=== PATIENT | male | born 1980 | race Caucasian/White ===

== ENCOUNTER 2018-06-24 14:49 | Emergency (ER) | payer OTHER, MEDICAID, SELFPAY ==
[2018-06-24 15:23] VITALS: BP 132/89; PULSE 97; RESP 18; TEMP 36.6; O2SAT 97; BMI 25.0
--- NOTE | 2018-06-24 15:36 | HMH.EDUTC ---
[facility] – [place] Disposition Clinical Impression: Left foot pain Cellulitis Qualifiers: Site of cellulitis: extremity Site of cellulitis of extremity: lower extremity Laterality: left Qualified Code(s): L03.116 - Cellulitis of left lower limb Disposition: Home, Self-Care Condition on Discharge: Good Instructions: Cellulitis Additional Instructions: We marked the area. If the redness is spreading please return or go to the er. Start the antibiotics as prescribed. Follow up with your regular doctor if this has not completely resolved in 24 to 48 hours. GO TO THE ER FOR ANY WORSENING OR LIFE THREATENING SYMPTOMS (SUCH FEVER, CHILLS, WORSENING PAIN, ETC) Prescriptions: Doxycycline Hyclate [Doxycycline 100mg Capsule] 100 mg PO Q12 10 Days #20 cap Triamcinolone Acetonide 1 applicatio TP TIDP PRN 7 Days #15 cream..g. PRN Reason: Itching Referrals: Davion Bauman MD [Primary Care Provider] - Time of Disposition: 15:49 Medical Decision Making - Medical Records Medical records reviewed: No: I reviewed the patient's medical records. - Kirk Inquiry Pt receiving controlled substance: No Kirk was queried for this patient: No Vital Signs: 06/24/18 15:23 06/24/18 16:01 Temperature 97.9 F 97.8 F Temperature Source Oral Oral Pulse Rate 92 H Pulse Rate [Right Radial] 97 H Respiratory Rate 18 16 Blood Pressure 130/76 Blood Pressure [Right Arm] 132/89 Blood Pressure Mean [Right Arm] 103 Blood Pressure Source Automatic Cuff Blood Pressure Position Sitting 02 Sat by Pulse Oximetry 97 Oxygen Delivery Method Room Air Room Air [facility] [place] HPI - General Stated complaint: sore on left foot Time Seen by Provider: 06/24/18 15:30 Mode of Arrival: Family Vehicle Source of Information: Patient Limitations: No Limitations Description of Symptoms (Recalled from Triage Doc. by RN): PT C/O LEFT FOOT SWELLING/REDNESS AND A BLISTER LIKE BITE ARIK THAT SHOWED UP THIS MORNING. THERE ARE 3 OTHER AREAS ON HIS FOOT BUT NOT BLISTERS. HEENT Symptoms (Recalled from RN notes): No Resp Symptoms (Recalled from RN notes): No Skin Symptoms (Recalled from RN notes): Yes (BLISTER WITH REDNESS AND SWELLING ON LEFT FOOT) MS Symptoms (Recalled from RN notes): No Functional Status (Recalled from RN notes): NA - History of Present Illness Provider Complaint: He states that he got up this morning with a tender and itching area on his left foot. He denies any known injury. He denies any history of diabetes or similar issues with his skin. He states he thinks he was bit by some sort of insect or spider, but he has not saw any likely suspects. - Related Data Previous Rx's Medication Instructions Recorded Doxycycline Hyclate [Doxycycline 100 mg PO Q12 10 Days #20 cap 06/24/18 100mg Capsule] Triamcinolone Acetonide 1 applicatio TP TIDP PRN 7 Days 06/24/18 #15 cream..g. Allergies Allergy/AdvReac Type Severity Reaction Status Date / Time Penicillins [PENICILLINS] Allergy Unknown Verified 06/24/18 15:29 - Worker's Comp Is this a Worker's Comp case?: No [facility] History - Hepatitis A Screen Drug use history?: No High risk sexual behaviors?: No History of sexually transmitted infection?: No Currently employed?: No Childcare worker?: No Do you have indoor plumbing?: Yes Do you have electricity?: Yes Attestation statement:: This patient has been screened for Hepatitis A risk factors. I have reviewed the patient's past medical history: Yes Amputation: No Fractures: No - Social History Smoking Status: Current every day smoker Tobacco Type: cigarettes # Packs/Day (cigarettes): 1 Alcohol Intake: current Alcohol Intake Frequency:: a few times a month Occupational Status: employed - Psychiatric History Expresses thoughts of harming self/others: None Suicide Plan Description: No Plan ROS Obtained: Yes All systems reviewed & no additional complaints - Constitutional Constitutional: Denies body ache, Denies chills, Denies fat
--- NOTE | 2018-06-24 15:37 | PC.NURSE ---
NAIF WEINSTEIN AT BEDSIDE FOR PT EVAL
--- NOTE | 2018-06-24 15:40 | ED_ITS ---
[facility] – [place] Disposition Clinical Impression: Left foot pain Cellulitis Qualifiers: Site of cellulitis: extremity Site of cellulitis of extremity: lower extremity Laterality: left Qualified Code(s): L03.116 - Cellulitis of left lower limb Disposition: Home, Self-Care Condition on Discharge: Good Instructions: Cellulitis Additional Instructions: We marked the area. If the redness is spreading please return or go to the er. Start the antibiotics as prescribed. Follow up with your regular doctor if this has not completely resolved in 24 to 48 hours. GO TO THE ER FOR ANY WORSENING OR LIFE THREATENING SYMPTOMS (SUCH FEVER, CHILLS, WORSENING PAIN, ETC) Prescriptions: Doxycycline Hyclate [Doxycycline 100mg Capsule] 100 mg PO Q12 10 Days #20 cap Triamcinolone Acetonide 1 applicatio TP TIDP PRN 7 Days #15 cream..g. PRN Reason: Itching Referrals: Davion Bauman MD [Primary Care Provider] - Time of Disposition: 15:49 Medical Decision Making - Medical Records Medical records reviewed: No: I reviewed the patient's medical records. - Kirk Inquiry Pt receiving controlled substance: No Kirk was queried for this patient: No Vital Signs: 06/24/18 15:23 06/24/18 16:01 Temperature 97.9 F 97.8 F Temperature Source Oral Oral Pulse Rate 92 H Pulse Rate [Right Radial] 97 H Respiratory Rate 18 16 Blood Pressure 130/76 Blood Pressure [Right Arm] 132/89 Blood Pressure Mean [Right Arm] 103 Blood Pressure Source Automatic Cuff Blood Pressure Position Sitting 02 Sat by Pulse Oximetry 97 Oxygen Delivery Method Room Air Room Air [facility] [place] HPI - General Stated complaint: sore on left foot Time Seen by Provider: 06/24/18 15:30 Mode of Arrival: Family Vehicle Source of Information: Patient Limitations: No Limitations Description of Symptoms (Recalled from Triage Doc. by RN): PT C/O LEFT FOOT SWELLING/REDNESS AND A BLISTER LIKE BITE ARIK THAT SHOWED UP THIS MORNING. THERE ARE 3 OTHER AREAS ON HIS FOOT BUT NOT BLISTERS. HEENT Symptoms (Recalled from RN notes): No Resp Symptoms (Recalled from RN notes): No Skin Symptoms (Recalled from RN notes): Yes (BLISTER WITH REDNESS AND SWELLING ON LEFT FOOT) MS Symptoms (Recalled from RN notes): No Functional Status (Recalled from RN notes): NA - History of Present Illness Provider Complaint: He states that he got up this morning with a tender and itching area on his left foot. He denies any known injury. He denies any history of diabetes or similar issues with his skin. He states he thinks he was bit by some sort of insect or spider, but he has not saw any likely suspects. - Related Data Previous Rx's Medication Instructions Recorded Doxycycline Hyclate [Doxycycline 100 mg PO Q12 10 Days #20 cap 06/24/18 100mg Capsule] Triamcinolone Acetonide 1 applicatio TP TIDP PRN 7 Days 06/24/18 #15 cream..g. Allergies Allergy/AdvReac Type Severity Reaction Status Date / Time Penicillins [PENICILLINS] Allergy Unknown Verified 06/24/18 15:29 - Worker's Comp Is this a Worker's Comp case?: No [facility] History - Hepatitis A Screen Drug use history?: No High risk sexual behaviors?: No History of sexually transmitted infection?: No Currently employed?: No Childcare worker?:
[2018-06-24 16:01] VITALS: BP 130/76; PULSE 92; RESP 16; TEMP 36.6; O2SAT 99
== END 2018-06-24 16:03 | disposition home or self-care (01) ==
PROVIDERS: Emergency Provider Nurse Practitioner Family; PCP Family Medicine
DX: L03.116 Cellulitis of left lower limb (principal); F17.210 Nicotine dependence, cigarettes, uncomplicated; Z88.0 Allergy status to penicillin
CPT/HCPCS: 99201

== ENCOUNTER → 2018-11-06 15:15 | Outpatient (CLI) | payer OTHER, MEDICAID, SELFPAY ==
--- NOTE | 2018-11-06 15:20 | XR_ITS ---
XR shoulder LT min 2V HISTORY: ITS.REASON: SHOULDER PAIN ORDERING PHYSICIAN: Joanie Dyer APRN PATIENT AGE: 38 years Comparison: None FINDINGS: No fracture or dislocation. No lytic or blastic change. There is normal mineralization. The joint spaces are well-preserved. No significant degenerative/arthritic changes. No erosive changes evident. Incidental note is made of a noncalcified nodule in the left perihilar region measuring 6 mm possibly due to summation artifact from overlying vessels. Upright PA and lateral chest may confirm. IMPRESSION: 1. No acute finding. Negative left shoulder. 2. Possible left perihilar nodule
== END ==
PROVIDERS: PCP Family Medicine; Visit Provider Nurse Practitioner Family
DX: M25.512 Pain in left shoulder (principal)
CPT/HCPCS: 73030

== ENCOUNTER → 2018-12-04 13:42 | Outpatient (CLI) | payer OTHER, MEDICAID, SELFPAY ==
--- NOTE | 2018-12-04 13:47 | XR_ITS ---
XR chest 2V HISTORY: ITS.REASON: LUNG NODULE ORDERING PHYSICIAN: Joanie yDer APRN PATIENT AGE: 38 years COMPARISON: None FINDINGS: Unremarkable cardiovascular structures. No lobar consolidation or collapse. On the left shoulder exam of 11/06/2018 there was questionable left perihilar nodule. This does appear to be vessel overlap. On the lateral view there are nodular opacities in the anterior clear space and may be due to granulomas or calcified nodes of the anterior mediastinum. There is straightening of the thoracic kyphosis. IMPRESSION: No acute finding. Left perihilar nodular opacity appears to represent an overlapping vessel
== END ==
PROVIDERS: PCP Family Medicine; Visit Provider Nurse Practitioner Family
DX: R91.1 Solitary pulmonary nodule (principal)
CPT/HCPCS: 71046

== ENCOUNTER 2018-12-20 11:00 | Outpatient (RCR) | payer OTHER, MEDICAID, SELFPAY ==
--- NOTE | 2018-12-11 10:46 | HMH.OTOPEV ---
OT Inpatient Evaluation Rehab OT Outpatient Eval Start: 12/11/18 10:33 Freq: Status: Active Protocol: Document 12/11/18 10:34 RMARSHALL (Rec: 12/11/18 10:46 [id number] Electronically Signed By Usman Santiago OT 12/11/18 10:34 Outpatient Therapy Subjective History Subjective History Pt is a 38 year old male who reports to therapy for initial evaluation to left shoulder. Pt began having pain in March of 2018, but does not recall a specific injury causing the pain. Within the past month patient explains his pain has increased significantly. Pt did have an injection in the left shoulder ~2 weeks ago by ortho . He reports his pain has not improved. Pt does have slight decreased AROM and strength at left shoulder with constant pain. Pt will continue to be seen twice a week in order to address all deficits. Chief Complaint Pain,Stiff,Weakness Symptom Type Ache,Throb,Sharp,Dull,Stabbing ,Burning,Shooting Symptoms Relieved By Nothing Symptoms Aggravated By Physical Activity,Lifting Prior Functional Limitations None Current Functional Limitations Reaching,Lifting,Housework, Dressing,Sleeping,Recreation Activity Symptom Description Constant but Variable Level of pain today (0-10) 5 Pain scale - at its best (0-10) 2 Pain scale - at its worst (0-10) 8 Shoulder/Elbow Eval Shoulder Objective Measurements Shoulder ROM Left Shoulder Abduction Active Range of 145 degrees Motion (degrees) Shoulder Flexion Active Range of Motion 140 degrees (degrees) Query Text: Shoulder External Rotation Active Range 65 degrees of Motion (degrees) Shoulder Internal Rotation Active Range 65 degrees of Motion (degrees) pain with active ROM shoulder exam left standard pain with passive ROM shoulder exam left standard decreased ROM shoulder exam standard left full ROM shoulder exam standard right Shoulder MMT Shoulder Abduction Strength Grade 4 Good Shoulder Extension Strength Grade 4 Good Shoulder Flexion Strength Grade 4 Good [place]
== END 2018-12-20 11:05 | disposition home or self-care (01) ==
LOC: OT 11:00
PROVIDERS: PCP Family Medicine; Visit Provider Orthopaedic Surgery
DX: M25.512 Pain in left shoulder (principal)
CPT/HCPCS: 97014; 97110; 97166; G0283

== ENCOUNTER → 2018-12-26 14:52 | Outpatient (CLI) | payer OTHER, MEDICAID, SELFPAY ==
--- NOTE | 2018-12-26 14:53 | MR_ITS ---
PROCEDURE: MR SHOULDER LT WO CON CLINICAL INDICATION: left shoulder pain Pain, pain with movement COMPARISON: from 11/06/2018 from 12/04/2018 TECHNIQUE: Routine multiplanar multi echo sequences are performed without gadolinium enhancement. FINDINGS: There is mild thickening of the supraspinatus tendon distally with slight increase in T2 signal suggesting tendinopathy/tendinosis. The infraspinatus, subscapularis, and teres minor tendons are intact. There is no evidence of rotator cuff tear. The bicipital tendon is in place. There is fluid signal intensity deep to the anterior/superior glenoid labrum running parallel with the labrum and the glenoid consistent with a super labral recess. Labral recess also probably present inferiorly. Mild subacromial stenosis of 5 mm IMPRESSION: 1. Mild tendinopathy/tendinosis of the supraspinatus tendon with mild subacromial stenosis. 2. No evidence of tear of the rotator cuff. 3. Findings compatible with supra labral recess. This may be confirmed with MR arthrography if symptoms persist. Dictated by: Jaime Bond MD 12/27/2018 09:38 Signed by: <Electronically signed by Jaime Bond MD in [place]> 12/27/2018 09:38
== END ==
PROVIDERS: PCP Family Medicine; Visit Provider Orthopaedic Surgery
DX: M25.512 Pain in left shoulder (principal)
CPT/HCPCS: 73221

== ENCOUNTER → 2019-01-22 12:55 | Outpatient (CLI) | payer OTHER, MEDICAID, SELFPAY ==
--- NOTE | 2019-01-22 12:56 | IR_ITS ---
Exam: Left shoulder arthrogram CLINICAL INDICATION: shoulder pain Persistent left shoulder pain. Possible labral tear versus sublabral recess COMPARISON: MR SHOULDER LT WO CON from 12/26/2018 TECHNIQUE: Following obtaining informed consent under aseptic conditions and local anesthesia with 1 percent buffered lidocaine, a 22 gauge needle was inserted by the anterior superior approach into the shoulder joint capsule. Contrast was initially injected but was not felt to enter the shoulder joint capsule. The needle was then repositioned an intra-articular injection performed. Patient tolerated the procedure well without evidence of immediate complication. The patient was then taken to the MRI suite where post arthrographic images were obtained. The fluoroscopy time: 5 minutes and 13 seconds FINDINGS: Arthrographic no evidence of rotator cuff tear. There is smooth outline of the articular surfaces. No evidence of adhesive capsulitis. There was extravasation of contrast into the soft tissues in the subcoracoid region. MRI arthrogram: No evidence of rotator cuff tear. There is some mild thickening with heterogeneous signal intensity of the supraspinatus tendon consistent with tendinopathy/tendinosis. The infraspinatus, subscapularis, and teres minor tendons are intact. Contrast extends medially along the superior aspect of the glenoid labrum anteriorly. This was felt to represent a sublabral recess on the previous exam however, is somewhat more prominent than what 1 would expect for a sublabral recess and has a somewhat truncated margin. A SLAP tear is therefore considered. The gap here measures up to approximately 4 mm. Remaining labrum has an unremarkable appearance. Biceps tendon is in place. The biceps tendon however has a split like appearance in the superior aspect suggesting a split type tear. A complete tear is not felt to be present. IMPRESSION: 1. No evidence of rotator cuff tear. 2. Contrast extends between the glenoid labrum and the glenoid with a somewhat truncated margin of the superior labrum and wider space than expected for a sublabral recess. This lead 1 to believe that this is a SLAP tear of the superior glenoid labrum. 3. Longitudinal split tear of the long head of the biceps tendon superiorly Dictated by: Jaime Bond MD 01/22/2019 14:47 Electronically signed by Jaime Bond MD in [place] 01/25/2019 12:14
== END ==
PROVIDERS: PCP Family Medicine; Visit Provider Orthopaedic Surgery
DX: M25.512 Pain in left shoulder (principal)
CPT/HCPCS: 73040; 73222; Q9967

== ENCOUNTER → 2019-08-01 09:52 | Outpatient (CLI) | payer OTHER, SELFPAY ==
--- NOTE | 2019-08-01 09:56 | XR_ITS ---
PROCEDURE: XR HAND RT MIN 3V CLINICAL INDICATION: sp RT small digit pinning Follow-up pinning COMPARISON: 07/22/2019 FINDINGS: Crossing pins are present stabilizing the proximal phalanx fracture of the 5th digit with good alignment and only minimal dorsal displacement of the distal fracture fragment The joint spaces are well-preserved. No significant degenerative/arthritic changes. No erosive changes evident. Other findings:None. IMPRESSION: Good alignment status post pinning 5th proximal phalanx fracture Dictated by: Jaime Bond MD 08/01/2019 10:08 Electronically signed by Jaime Bond MD in [place] 08/01/2019 10:08
== END ==
PROVIDERS: PCP Family Medicine; Visit Provider Orthopaedic Surgery
DX: S62.616D Displaced fracture of proximal phalanx of right little finger, subsequent encounter for fracture with routine healing (principal); Z48.89 Encounter for other specified surgical aftercare
CPT/HCPCS: 73130

== ENCOUNTER → 2019-08-16 10:07 | Outpatient (CLI) | payer OTHER, SELFPAY ==
--- NOTE | 2019-08-16 10:12 | XR_ITS ---
PROCEDURE: XR HAND RT MIN 3V CLINICAL INDICATION: sp RT small digit pinning Follow-up ORIF COMPARISON: XR HAND RT MIN 3V from 07/22/2019 XR HAND RT MIN 3V from 08/01/2019 FINDINGS: Status post external fixation of the proximal phalanx fracture of the 5th digit with crossing wires in place as before stabilizing nondisplaced proximal shaft fracture of the proximal phalanx. Fracture line may be slightly less apparent. There is a posterior splint in place. IMPRESSION: Good alignment status post external fixation proximal phalanx fracture of the 5th digit Dictated by: Jaime Bond MD 08/16/2019 12:48 Electronically signed by Jaime Bond MD in [place] 08/16/2019 12:48
== END ==
PROVIDERS: PCP Family Medicine; Visit Provider Orthopaedic Surgery
DX: S62.616D Displaced fracture of proximal phalanx of right little finger, subsequent encounter for fracture with routine healing (principal)
CPT/HCPCS: 73130

== ENCOUNTER 2019-08-16 11:37 | Outpatient (RCR) | payer OTHER, SELFPAY | END 2019-08-16 12:05 | disposition home or self-care (01) | LOC: OT 11:37 | PROVIDERS: Visit Provider Orthopaedic Surgery | DX: S62.616D Displaced fracture of proximal phalanx of right little finger, subsequent encounter for fracture with routine healing (principal) | CPT/HCPCS: 97760 ==

== ENCOUNTER → 2019-08-29 10:01 | Outpatient (CLI) | payer OTHER, SELFPAY ==
--- NOTE | 2019-08-29 10:05 | XR_ITS ---
PROCEDURE: XR HAND RT MIN 3V CLINICAL INDICATION: S/P CRPP Rt small digit Follow-up fracture COMPARISON: XR HAND RT MIN 3V from 07/22/2019 XR HAND RT MIN 3V from 08/01/2019 XR HAND RT MIN 3V from 08/16/2019 FINDINGS: The pans the and splint has been removed. The comminuted fracture lines are still visible although somewhat less apparent. There is minimal dorsal displacement of the distal fracture fragment. The joint spaces are well-preserved. No significant degenerative/arthritic changes. No erosive changes evident. Other findings:None. IMPRESSION: Good alignment status post pin removal with fracture line still visible but somewhat less apparent Dictated by: Jaime Bond MD 08/29/2019 13:01 Electronically signed by Jaime Bond MD in [place] 08/29/2019 13:01
== END ==
PROVIDERS: PCP Family Medicine; Visit Provider Orthopaedic Surgery
DX: S62.616A Displaced fracture of proximal phalanx of right little finger, initial encounter for closed fracture (principal)
CPT/HCPCS: 73130

== ENCOUNTER → 2019-09-12 09:59 | Outpatient (CLI) | payer OTHER, SELFPAY ==
--- NOTE | 2019-09-12 10:07 | XR_ITS ---
PROCEDURE: XR HAND RT MIN 3V CLINICAL INDICATION: Phalanx FX Fu Follow-up fracture COMPARISON: XR HAND RT MIN 3V from 07/22/2019 XR HAND RT MIN 3V from 08/01/2019 XR HAND RT MIN 3V from 08/16/2019 XR HAND RT MIN 3V from 08/29/2019 FINDINGS: There is a cast in place. This obscures the fracture of the 5th finger proximal phalanx. There is good alignment. The joint spaces are well-preserved. No significant degenerative/arthritic changes. No erosive changes evident. Other findings:None. IMPRESSION: Overlying cast in place. Good alignment proximal phalanx fracture of the 5th digit Dictated by: Jaime Bond MD 09/12/2019 14:38 Electronically signed by Jaime Bond MD in [place] 09/12/2019 14:38
--- NOTE | 2019-09-12 10:29 | XR_ITS ---
PROCEDURE: XR HAND RT MIN 3V CLINICAL INDICATION: Rt phlanax FX Follow-up fracture COMPARISON: XR HAND RT MIN 3V from 08/01/2019 XR HAND RT MIN 3V from 08/16/2019 XR HAND RT MIN 3V from 08/29/2019 XR HAND RT MIN 3V from 09/12/2019 FINDINGS: The cast has been removed. There is good alignment of the comminuted fracture of the proximal phalanx of the 5th digit. There is some overlying callus formation. Fracture lines are however still visible.. There does appear to be an old fracture of the distal aspect of the 5th metacarpal. IMPRESSION: Healing fracture proximal phalanx 5th finger Dictated by: Jaime Bond MD 09/12/2019 11:12 Electronically signed by Jaime Bond MD in [place] 09/12/2019 11:12
== END ==
PROVIDERS: PCP Family Medicine; Visit Provider Orthopaedic Surgery
DX: S62.616D Displaced fracture of proximal phalanx of right little finger, subsequent encounter for fracture with routine healing (principal); S62.91XA Unspecified fracture of right hand, initial encounter for closed fracture
CPT/HCPCS: 73130

== ENCOUNTER → 2019-10-03 10:07 | Outpatient (CLI) | payer OTHER, SELFPAY ==
--- NOTE | 2019-10-03 10:10 | XR_ITS ---
PROCEDURE: XR HAND RT MIN 3V CLINICAL INDICATION: S/p hand FX Follow-up fracture COMPARISON: XR HAND RT MIN 3V from 08/16/2019 XR HAND RT MIN 3V from 08/29/2019 XR HAND RT MIN 3V from 09/12/2019 XR HAND RT MIN 3V from 09/12/2019 FINDINGS: Healing fractures present involving the 5th metacarpal at the proximal phalanx of the 5th finger. Fracture lines are still visible but less apparent. No significant displacement. The joint spaces are well-preserved. No significant degenerative/arthritic changes. No erosive changes evident. Other findings:None. IMPRESSION: Healing 5th metacarpal and proximal phalanx fractures Dictated by: Jaime Bond MD 10/03/2019 13:17 Electronically signed by Jaime Bond MD in [place] 10/03/2019 13:17
== END ==
PROVIDERS: PCP Family Medicine; Visit Provider Orthopaedic Surgery
DX: S62.91XA Unspecified fracture of right hand, initial encounter for closed fracture (principal)
CPT/HCPCS: 73130

== ENCOUNTER 2019-10-04 15:00 | Outpatient (RCR) | payer OTHER, SELFPAY ==
--- NOTE | 2019-09-20 14:32 | HMH.OTOPEV ---
OT Inpatient Evaluation Rehab OT Outpatient Eval Start: 09/20/19 13:50 Freq: Status: Active Protocol: Document 09/20/19 13:51 [facility] (Rec: 09/20/19 13[facility]56 [id number] Electronically Signed By Usman Santiago OT 09/20/19 13:51 Outpatient Therapy Subjective History Subjective History Pt is a 39 year old male who reports to therapy for initial evaluation to right small finger. Pt smashed his small finger in between a wall and a piece of metal resulting in a proximal phalanx fx. Pt is currently s/p CRPP R small finger; July 22, 2019. 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 Pt is right hand dominant. Pt will continue to be seen in order to address all deficits. 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 Source Operator Strength Symptom Type Ache,Throb,Sharp Symptoms Relieved By Rest/Positioning Symptoms Aggravated By Physical Activity,Lifting Prior Functional Limitations None Current Functional Limitations Reaching,Lifting,Housework, Driving,Recreation Activity Symptom Description Activity Dependent Level of pain today (0-10) 0 Pain scale - at its best (0-10) 0 Pain scale - at its worst (0-10) 3 Wrist/Hand Eval Finger Range of Motion Right Little Finger Finger Metacarpophalangeal Flexion 60 degrees Active Range of Motion (degrees) Finger Metacarpophalangeal Extension 0 degrees Active Range of Motion (degrees) Finger Proximal Interphalangeal Flexion 60 degrees Active Range (degrees) Finger Proximal Interphalangeal 0-40 degrees Extension Active Range (degrees) Finger Distal Interphala
== END 2019-10-04 15:05 | disposition home or self-care (01) ==
LOC: OT 15:00
PROVIDERS: PCP Family Medicine; Visit Provider Orthopaedic Surgery
DX: S62.91XA Unspecified fracture of right hand, initial encounter for closed fracture (principal)
CPT/HCPCS: 97110; 97140; 97166

== ENCOUNTER → 2021-06-29 15:10 | Outpatient (POV) | payer OTHER, SELFPAY | PROVIDERS: Visit Provider Dermatology | DX: Z00.00 Encounter for general adult medical examination without abnormal findings (principal) ==

== ENCOUNTER 2023-09-30 16:19 | Emergency (ER) | payer OTHER, SELFPAY ==
[2023-09-30 17:05] VITALS: BP 121/82; PULSE 76; RESP 16; TEMP 36.5; O2SAT 96; BMI 24.4
--- NOTE | 2023-09-30 18:21 | EXP.UTC ---
Discharge Plan Disposition Patient Disposition: Home, Self-Care Condition: Good Prescriptions Prescriptions: New methylprednisolone [Medrol ([place])] 4 mg tablets,dose pack See Rx Instructions .ROUTE .COMPLEX 6 Days Qty: 21 0RF Rx Instructions: 4 mg orally ;Medrol dose taper remington [id number] [Bromfed DM] 2-30-10 mg/5 mL syrup 10 ml PO Q4-6H PRN (Reason: cold symptoms) Qty: 200 0RF No Action albuterol sulfate 90 mcg/actuation HFA aerosol inhaler See Rx Instructions .ROUTE .COMPLEX Patient Comments: INHALE 2 PUFFS BY MOUTH 4 TIMES DAILY SCHEDULED THEN EVERY 2 HOURS NEEDED Rx Instructions: INHALE 2 PUFFS BY MOUTH 4 TIMES DAILY SCHEDULED THEN EVERY 2 HOURS NEEDED Referrals Follow up/Referrals: Davion Bauman MD [Primary Care Provider] - See instructions Clinical Impressions Clinical Impression: Acute upper respiratory infection Instructions Patient Instructions: DI for Viral Upper Respiratory Infection -- Adult Discharge ED Provider: Eli Mcpherson [facility] General Stated complaint: KAYE,congestion Mode of Arrival: Ambulatory Source of Information: Patient Limitations: No Limitations Time Seen by Provider: 09/30/23 18:03 Description of Symptoms (Recalled from Triage Doc. by RN): Pt's symptoms are KAYE, congestion, fatigue, and swollen eyes. Was seen by PCP on 09/25/2023. HEENT Symptoms (Recalled from RN notes): Yes Resp Symptoms (Recalled from RN notes): No Skin Symptoms (Recalled from RN notes): No MS Symptoms (Recalled from RN notes): No Functional Status (Recalled from RN notes): n/a History of Present Illness Provider Complaint: Pt reports that he finished his antibiotics last night and continues to have strong cough, nasal congestion, clear runny nose, facial swelling and pressure, red eyes, and fatigue. Related Data Home Medications Medication Instructions Recorded Confirmed albuterol sulfate 90 mcg/actuation See Rx Instructions .Route .COMPLEX 09/30/23 09/30/23 aerosol inhaler Previous Rx's Medication Instructions Recorded [id number]-MI 10 ml PO Q4-6H PRN cold symptoms 09/30/23 2 mg-30 mg-10 mg/5 mL oral syrup #200 mL (Bromfed DM) methylprednisolone 4 mg tablets in See Rx Instructions .Route 09/30/23 a dose pack (Medrol ([place])) .COMPLEX 6 days #21 tabs Allergies Allergy/AdvReac Type Severity Reaction Status Date / Time Penicillins [PENICILLINS] Allergy Unknown Verified 09/30/23 17:38 Worker's Comp Is this a Worker's Comp case?: No [facility] Disclaimer: The information contained in this section may have been updated after the patient was seen, as this information can be updated by other users. Social History Smoking Status: Current every day smoker tobacco type: cigarettes packs per day: 1 alcohol intake: current alcohol intake frequency: holidays/special occasions only substance use type: other current occupational status: employed Travel in the last 8 weeks: None number of children: 2 caffeine: Yes ROS Obtained: Yes All systems reviewed & no additional complaints except as documented Constitutional Constitutional: Reports system reviewed and no additional complaints, except as documented, Reports fatigue, Reports fever(s) and Reports malaise Eyes Eyes: Reports system reviewed and no additional complaints, except as documented and Reports eye discharge ENT Ears, Nose, Mouth, and Throat: Reports system reviewed and no additional complaints, except as documented, Reports nasal congestion, Reports nasal discharge, Reports post nasal drip and Reports sinus pressure Cardiovascular Cardiovascular: Reports system reviewed and no additional complaints, except as documented Respiratory Respiratory: Reports system reviewed and no additional complaints, except as documented and Reports non-productive cough Gastrointestinal Gastrointestingal: Reports system reviewed and no additional complaints, except as documented Genitourinary Male Genitourinary: Reports system reviewed and no additional complaints, except as documented Musculoskeletal Musculoskeletal: Reports system reviewed and no additional complaints, except as documented Integumentary/Breasts Skin/Breast: Reports system reviewed and no additional complaints, except as documented Neurologic Neurologic: Reports system reviewed and no additional complaints, except as documented Endocrine Endocrine: Reports system reviewed and no additional complaints, except as documented and Reports fatigue Hematologic/Lymphatic Henatologic/Lymphatic: Reports system reviewed and no additional complaints, except as documented Allergic/Immunologic Allergic/Immunologic: Reports system reviewed and no additional complaints, except as documented Physical Exam General General appearance: alert Comment: ill appearing Head Head exam: atraumatic and normocephalic Eye Eye exam: Present normal appearance Expanded ENT Exam External ear exam: Present normal external inspection Nose exam: Present sinus tenderness Nasal speculum exam: Bilateral: other (clear drainage edematous mucosa) Mouth exam: Present normal external inspection Teeth exam: Present normal inspection Throat exam: Present normal inspection Neck Neck exam: Present normal inspection Chest Chest inspection: Present normal inspection and symmetric chest wall rise Respiratory Respiratory exam: Present other (course sounds throughout) Cardiovascular Cardiovascular exam: Present regular rate and normal rhythm Abdominal Exam Abdominal exam: Present soft Extremities Exam Extremities exam: Present normal inspection Back Exam Back exam: Present normal inspection Neurological Exam Neurological exam: Present alert and oriented X3 Psychiatric Psychiatric exam: Present normal affect and normal mood Skin Skin exam: Present warm and dry Lymphatic Lymphatic Findings: no adenopathy Medical Decision Making Kirk Inquiry Pt receiving controlled substance: No Kirk was queried for this patient: No Vital Signs: 09/30/23 17:05 Temperature 97.7 F Temperature Source Oral Pulse Rate [Right Radial] 76 Respiratory Rate 16 Blood Pressure [Right Arm] 121/82 Blood Pressure Mean [Right Arm] 95 Blood Pressure Source [Right Arm] Automatic Cuff Blood Pressure Position [Right Arm] Sitting 02 Sat by Pulse Oximetry 96 Oxygen Delivery Method Room Air
[2023-09-30 18:35] VITALS: BP 121/82; PULSE 76; RESP 20; TEMP 36.5; O2SAT 96
--- NOTE | 2023-09-30 18:35 | PC.NURSE ---
Sent full panel to lab via tube system
[2023-09-30 18:57] LABS: Adenovirus,PCR Not Detected (NotDetected); Bordetella Pertussis Not Detected (NotDetected); Chlamydophila Pneumoniae, PCR Not Detected (NotDetected); Coronavirus 19, PCR Not Detected (NotDetected); Coronavirus 229E Not Detected (NotDetected); Coronavirus NL63 Not Detected (NotDetected); Coronavirus OC43 Not Detected (NotDetected); Coronovirus HKU1,PCR Not Detected (NotDetected); Human Metapneumovirus Not Detected (NotDetected); Influenza A, PCR Not Detected (NotDetected); Influenza AH1, 2009 Not Detected (NotDetected); Influenza AH1, PCR Not Detected (NotDetected); Influenza AH3,PCR Not Detected (NotDetected); Influenza B, PCR Not Detected (NotDetected); Mycoplasma Pneumoniae, PCR Not Detected (NotDetected); Parainfluenza 1, PCR Not Detected (NotDetected); Parainfluenza 2, PCR Not Detected (NotDetected); Parainfluenza 4, PCR Not Detected (NotDetected); Respiratory Syncytial Virus Not Detected (NotDetected); Rhinovirus/Enterovirus Not Detected (NotDetected)
[2023-10-01 02:15] LABS: Parainfluenza 3, PCR Detected (NotDetected)
== END 2023-09-30 18:35 | disposition home or self-care (01) ==
PROVIDERS: Emergency Provider Nurse Practitioner Family; PCP Family Medicine
DX: R05.9 Cough, unspecified (principal); B34.8 Other viral infections of unspecified site; R09.81 Nasal congestion; R53.83 Other fatigue
CPT/HCPCS: 87581; 87632; 87635; 87798; 99204; 99212; G0463

== ENCOUNTER 2023-10-03 21:51 | Emergency (ER) | payer OTHER, SELFPAY ==
[2023-10-03 22:04] VITALS: BP 141/94; PULSE 87; RESP 18; TEMP 37; O2SAT 98; BMI 24.6
--- NOTE | 2023-10-03 22:32 | PC.NURSE ---
rounded on pt at this time. no needs voiced
[2023-10-03 22:33] LABS: Basophils # 0.2 K/mm3 (0-0.2); Eosinophils # 0.3 K/mm3 (0.0-0.4); Eosinophils % 1.6 % (0.1-12.0); Hematocrit 52.8 % (42.0-52.0); Hemoglobin 17.4 g/dL (14.1-18.0); Lymphocytes # 2.6 K/mm3 (0.7-4.5); Lymphocytes % 15.2 % (10-50); Mean Corpuscular Volume 96.8 fl (80-94); Mean Platelet Volume 7.3 fl (7.4-10.4); Monocytes # 0.9 K/mm3 (0.1-1.0); Monocytes % 5.2 % (1.7-9.3); Neutrophils # 13.2 K/mm3 (1.8-7.8); Neutrophils % 76.9 % (37.0-80.0); Platelet Count 619 K/mm3 (142-424); Red Blood Count 5.46 M/mm3 (4.60-6.20); Red Cell Distribution Width 14.1 % (11.5-17.5); White Blood Count 17.1 K/mm3 (4.8-10.8)
[2023-10-03 22:37] LABS: MANUAL DIFFERENTIAL MANUAL DIFFERENTIAL (MANUAL DIFF)
[2023-10-03 23:05] LABS: Alanine Aminotransferase 62 U/L (12-78); Albumin Level 4.4 g/dl (3.5-5.0); Albumin/Globulin Ratio 1.2 (1.1-1.8); Alkaline Phosphatase 95 U/L (38-126); Aspartate Amino Transferase 45 U/L (17-59); Bilirubin,Total 0.5 mg/dl (0.2-1.3); Blood Urea Nitrogen 8 mg/dl (9-20); Calcium 9.8 mg/dl (8.4-10.2); Carbon Dioxide 33 mmol/L (22.0-30.0); Chloride 97 mmol/L (98-107); Creatinine Clearance Estimated 141 mL/min (50-200); Erythrocyte Sedimentation Rate 1 mm/hr (0-15); Estimated Glomerular Filt Rate 105 ml/min (>60); GFR (African American) 127 ML/MIN (>60); Globulin 3.6 g/dL (1.3-3.2); Glucose 104 mg/dl (74-100); Sodium 140 mmol/L (136-145)
--- NOTE | 2023-10-03 23:05 | XR_ITS ---
PROCEDURE INFORMATION: Exam: XR Chest Exam date and time: 10/03/2023 11:02 PM Age: 43 years old Clinical indication: Wheezing; Additional info: Rll wheezes TECHNIQUE: Imaging protocol: Radiologic exam of the chest. Views: 2 views. COMPARISON: DX (CHEST PA, CHEST, CHEST PA) 12/04/2018 2:01 PM FINDINGS: Lungs: Unremarkable. No consolidation. Pleural spaces: Unremarkable. No pleural effusion. No pneumothorax. Heart/Mediastinum: Unremarkable. No cardiomegaly. Bones/joints: Unremarkable. IMPRESSION: No acute findings.
[2023-10-03 23:06] LABS: Lactic Acid 1.3 mmol/L (0.7-2.1)
--- NOTE | 2023-10-03 23:10 | ED_ITS ---
Discharge Plan Disposition Patient Disposition: Home, Self-Care Prescriptions Prescriptions: No Action albuterol sulfate 90 mcg/actuation HFA aerosol inhaler See Rx Instructions .ROUTE .COMPLEX Patient Comments: INHALE 2 PUFFS BY MOUTH 4 TIMES DAILY SCHEDULED THEN EVERY 2 HOURS NEEDED Rx Instructions: INHALE 2 PUFFS BY MOUTH 4 TIMES DAILY SCHEDULED THEN EVERY 2 HOURS NEEDED methylprednisolone [Medrol (Remington)] 4 mg tablets,dose pack See Rx Instructions .ROUTE .COMPLEX 6 Days Qty: 21 0RF Rx Instructions: 4 mg orally ;Medrol dose taper remington znifbfzrilezupg-obqoshmij-RM [Bromfed DM] 2-30-10 mg/5 mL syrup 10 ml PO Q4-6H PRN (Reason: cold symptoms) Qty: 200 0RF Referrals Follow up/Referrals: Davion Bauman MD [Primary Care Provider] - See instructions Activity Restrictions/Add. Instructions Additional Instructions/Restrictions: Please use eyedrops in both eyes, 1 drop every 6 hours for 7-10 days. Please follow-up with your primary care provider. Please return to the emergency department if you develop any new or worsening symptoms. Clinical Impressions Clinical Impression: Parainfluenza virus infection, Other stomatitis and mucositis (ulcerative), Conjunctivitis, Rash and nonspecific skin eruption Instructions Patient Instructions: DI for Skin Abscess Discharge ED Provider: Nelson Ahn General Adult HPI <Luke Rivera MD - Last Filed: 10/03/23 23:15> General Chief complaint: Skin/Abscess/Foreign Body Stated complaint: sore throat, blisters, rash on torso Time Seen by Provider: 10/03/23 22:04 Mode of Arrival: Ambulatory Source of Information: Patient and Spouse Limitations: No Limitations Description of Symptoms (Recalled from ER Triage Doc. by RN): pt to ed and states he was treated by pcp last monday for bronchitis with azithromycin and albuterol inhaler. Pt had worsening sx and was seen in [facility] monday and was given bromfed and solu-medrol. pt reports worsening sx with eyes and lips swelling, blisters in mouth and spotted rash on torso History of Present Illness HPI narrative: Please note that above description of symptoms, in this electronic medical record under categorization of recalled from ER triage doctor by RN are reflective of an initial nursing assessment, however, is not reflective of my full history and physical exam that was personally taken and clarified. Consequentially, this preceding description of symptoms, which may include the patient's categorized chief complaint in the EMR, do not reflect my personal clinical impression, and the ultimate description of history of present illness and patient stated complaints should be deferred to this section of the note. Unless stated otherwise or congruent with this section of the note, additional signs, symptoms, or incongruence should be interpreted as inaccurate with my clinical impression. Related Data Home Medications Medication Instructions Recorded Confirmed albuterol sulfate 90 mcg/actuation See Rx Instructions .Route .COMPLEX 09/30/23 09/30/23 aerosol inhaler Previous Rx's Medication Instructions Recorded zkujajmohfyphhy-ijyjtgifypceuvk-JY 10 ml PO Q4-6H PRN cold symptoms 09/30/23 2 mg-30 mg-10 mg/5 mL oral syrup #200 mL (Bromfed DM) methylprednisolone 4 mg tablets in See Rx Instructions .Route 09/30/23 a dose pack (Medrol (Remington)) .COMPLEX 6 days #21 tabs Allergies Allergy/AdvReac Type Severity Reaction Status Date / Time Penicillins [PENICILLINS] Allergy Unknown Verified 09/30/23 17:38 PFS <Luke Rivera MD - Last Filed: 10/03/23 23:15> [facility] Disclaimer: The information contained in this section may have been updated after the patient was seen, as this information can be updated by other users. Social History Smoking Status: Current every day smoker tobacco type: cigarettes packs per day: 1 alcohol intake: current alcohol intake frequency: holidays/special occasions only substance use type: other current occupational status: employed Travel in the last 8 weeks: None number of children: 2 caffeine: Yes <Luke Rivera MD - Last Filed: 10/03/23 23:15> ROS Obtained: Yes All systems reviewed & no additional complaints except as documented Physical Exam <Luke Rivera MD - Last Filed: 10/03/23 23:15> General General appearance: alert and in no apparent distress Head Head exam: atraumatic and normocephalic Eye Eye exam: Present normal appearance, PERRL and EOMI ENT ENT exam: Present mucous membranes moist and other (Numerous central oral blisters and lesions on bilateral buccal mucosa as well as lips, tongue down into throat.) Neck Neck exam: Present normal inspection, full ROM and trachea midline; Absent tenderness or lymphadenopathy Respiratory Respiratory exam: Present wheezes (Isolated to right lower lung mock anteriorly); Absent respiratory distress, stridor, accessory muscle use or prolonged expiratory phase Cardiovascular Cardiovascular exam: Present regular rate and normal rhythm Abdominal Exam Abdominal exam: Present soft; Absent distention, tenderness, guarding, rebound or rigidity Extremities Exam Extremities exam: Absent edema Neurological Exam Neurological exam: Present alert, oriented X3, CN II-XII intact and normal gait; Absent motor sensory deficit Skin Skin exam: Present warm and dry; Absent diaphoresis or erythema Medical Decision Making <Luke Rivera MD - Last Filed: 10/03/23 23:15> Medical Records Medical records reviewed: Yes I reviewed the patient's medical records. Kirk Inquiry Pt receiving controlled substance: No Kirk was queried for this patient: No Vital Signs: 10/03/23 22:04 10/04/23 00:43 Temperature 98.6 F 98.2 F Temperature Source Oral Oral Pulse Rate 71 Pulse Rate [Left Radial] 87 Respiratory Rate 18 16 Blood Pressure 149/97 H Blood Pressure [Right Arm] 141/94 H Blood Pressure Mean [Right Arm] 109 Blood Pressure Source Automatic Cuff Blood Pressure Source [Right Arm] Automatic Cuff Blood Pressure Position Sitting Blood Pressure Position [Right Arm] Sitting 02 Sat by Pulse Oximetry 98 Oxygen Delivery Method Room Air Room Air Lab Data Lab Results 10/03/23 22:25: WBC 17.1 H, RBC 5.46, Hgb 17.4, Hct 52.8 H, MCV 96.8 H, MCH 32.0 H, MCHC 33.0, RDW 14.1, Plt Count 619 H, MPV 7.3 L, Neut % (Auto) 76.9, Lymph % (Auto) 15.2, Lipscomb % (Auto) 5.2, Eos % (Auto) 1.6, Baso % (Auto) 1.0, Neut # (Auto) 13.2 H, Lymph # (Auto) 2.6, Lipscomb # (Auto) 0.9, Eos # (Auto) 0.3, Baso # (Auto) 0.2, Total Counted 100, Neutrophils % (Manual) 73, Lymphocytes % (Manual) 26, Monocytes % (Manual) 1 L, Platelet Estimate Normal, RBC Morphology Normal, ESR 1, Sodium 140, Potassium 3.5, Chloride 97 L, Carbon Dioxide 33 H, Anion Gap 13.5, BUN 8 L, Creatinine 0.80, Estimated Creat Clear 141, Estimated GFR 105, Est GFR ( Amer) 127, Glucose 104 H, Lactate 1.3, Calcium 9.8, Total Bilirubin 0.5, AST 45, ALT 62, Alkaline Phosphatase 95, C-Reactive Protein 7.0 H , Total Protein 8.0, Albumin 4.4, Globulin 3.6 H, Albumin/Globulin Ratio 1.2 10/03/23 22:25 10/03/23 22:25 Orders (Tests/Meds): ED MEDICATIONS Discontinued Medications Generic Name Dose Route Start Last Admin Trade Name Freq PRN Reason Stop Dose Admin Ofloxacin 0 ml 10/04/23 01:00 10/04/23 01:00 Ofloxacin 0.3% Ophth Drops 5ml OP 11/03/23 00:59 5 ml Q2H SEYMOUR Administration Polymyxin/Trimethoprim Sulfate 0 ml 10/04/23 06:00 Trimethoprim-Polymyxin B Ophth Soln 10ml OP 11/03/23 05:59 [id number] SEYMOUR ORDERS Category Date Time Status CXR 2 view (NOT portable) [XR chest 2V] Stat Exams 10/03/23 23:05 Completed CBC w/Auto Diff [Complete Blood Count Auto Diff] Stat Lab 10/03/23 22:25 Completed CMP [Comprehensive Metabolic Panel] Stat Lab 10/03/23 22:25 Completed CRP [C-Reactive Protein] Stat Lab 10/03/23 22:25 Completed ESR [Erythrocyte Sedimentation Rate] Stat Lab 10/03/23 22:25 Completed Lactic Acid Stat Lab 10/03/23 22:25 Completed Blood Culture Stat Micro 10/03/23 22:30 Received Medical Decision Narrative: 43-year-old male no relevant medical history presenting with blisters in his mouth, throat. Patient was diagnosed with bronchitis about 8 days prior to this visit, started on azithromycin and albuterol. Patient did not use albuterol, used azithromycin until done. 5 days prior to this visit, started developing sores in his mouth. Also developed bilateral eye pain and itching/swelling. States that this continued to get worse. Went to urgent care on Monday, diagnosed with parainfluenza 3. Patient was given Bromfed and Medrol Dosepak for cough. Has been taking Medrol Dosepak, not Bromfed. Coming in for further evaluation of oral blisters and what now appear to be blisters in his throat. Denies shortness of breath, voice changes, difficulty or pain with range of motion of neck, trismus, chest pain, or any other concerns. To be noted the patient has numerous medication changes recently was complicates care. history was obtained via conversation with patient. On arrival, patient hemodynamically stable, alert, [oriented x4, ][appropriate, ]GCS [15], moving all extremities spontaneously, pupils equal and reactive to light. Full physical exam performed and significant for numerous intraoral lesions. He also has bilateral conjunctivitis. No lymphadenopathy. He does have erythematous rash on face, trunk that spares his palms and soles. Evidence of skin sloughing. Wheezes in right lower lung mock anteriorly. Normotensive, nontachycardic, otherwise. Differential includes SJS/TN, pneumonia, medication side effect, adverse reaction, viral syndrome, among others. Workup independently interpreted and significant for leukocytosis 17,000 with neutrophilia, patient is on steroids though. Nonactionable chemistry. Chest x- ray pending at time of handoff to oncoming physician. Automatic Pilot Mechanic disclaimer Much of this encounter note is an electronic operator prefinish spoken language to printed text. Electronic operator prefinish of the spoken language may permit errors. Although I have reviewed the note, some errors may still exist. <Nelson Ahn MD - Last Filed: 10/04/23 04:02> Vital Signs: 10/03/23 22:04 10/04/23 00:43 Temperature 98.6 F 98.2 F Temperature Source Oral Oral Pulse Rate 71 Pulse Rate [Left Radial] 87 Respiratory Rate 18 16 Blood Pressure 149/97 H Blood Pressure [Right Arm] 141/94 H Blood Pressure Mean [Right Arm] 109 Blood Pressure Source Automatic Cuff Blood Pressure Source [Right Arm] Automatic Cuff Blood Pressure Position Sitting Blood Pressure Position [Right Arm] Sitting 02 Sat by Pulse Oximetry 98 Oxygen Delivery Method Room Air Room Air Lab Data Lab Results 10/03/23 22:25: WBC 17.1 H, RBC 5.46, Hgb 17.4, Hct 52.8 H, MCV 96.8 H, MCH 32.0 H, MCHC 33.0, RDW 14.1, Plt Count 619 H, MPV 7.3 L, Neut % (Auto) 76.9, Lymph % (Auto) 15.2, Lipscomb % (Auto) 5.2, Eos % (Auto) 1.6, Baso % (Auto) 1.0, Neut # (Auto) 13.2 H, Lymph # (Auto) 2.6, Lipscomb # (Auto) 0.9, Eos # (Auto) 0.3, Baso # (Auto) 0.2, Total Counted 100, Neutrophils % (Manual) 73, Lymphocytes % (Manual) 26, Monocytes % (Manual) 1 L, Platelet Estimate Normal, RBC Morphology Normal, ESR 1, Sodium 140, Potassium 3.5, Chloride 97 L, Carbon Dioxide 33 H, Anion Gap 13.5, BUN 8 L, Creatinine 0.80, Estimated Creat Clear 141, Estimated GFR 105, Est GFR ( Amer) 127, Glucose 104 H, Lactate 1.3, Calcium 9.8, Total Bilirubin 0.5, AST 45, ALT 62, Alkaline Phosphatase 95, C-Reactive Protein 7.0 H , Total Protein 8.0, Albumin 4.4, Globulin 3.6 H, Albumin/Globulin Ratio 1.2 Orders (Tests/Meds): ED MEDICATIONS Discontinued Medications Generic Name Dose Route Start Last Admin Trade Name Freq PRN Reason Stop Dose Admin Ofloxacin 0 ml 10/04/23 01:00 10/04/23 01:00 Ofloxacin 0.3% Ophth Drops 5ml OP 11/03/23 00:59 5 ml Q2H [facility]YMOUR Administration Polymyxin/Trimethoprim Sulfate 0 ml 10/04/23 06:00 Trimethoprim-Polymyxin B Ophth Soln 10ml OP 11/03/23 05:59 [id number] [facility] ORDERS Category Date Time Status CXR 2 view (NOT portable) [XR chest 2V] Stat Exams 10/03/23 23:05 Completed CBC w/Auto Diff [Complete Blood Count Auto Diff] Stat Lab 10/03/23 22:25 Completed CMP [Comprehensive Metabolic Panel] Stat Lab 10/03/23 22:25 Completed CRP [C-Reactive Protein] Stat Lab 10/03/23 22:25 Completed ESR [Erythrocyte Sedimentation Rate] Stat Lab 10/03/23 22:25 Completed Lactic Acid Stat Lab 10/03/23 22:25 Completed Blood Culture Stat Micro 10/03/23 22:30 Received Medical Decision Narrative: 43-year-old male no relevant medical history presenting with blisters in his mouth, throat. Patient was diagnosed with bronchitis about 8 days prior to this visit, started on azithromycin and albuterol. Patient did not use albuterol, used azithromycin until done. 5 days prior to this visit, started developing sores in his mouth. Also developed bilateral eye pain and itching/swelling. States that this continued to get worse. Went to urgent care on Monday, diagnosed with parainfluenza 3. Patient was given Bromfed and Medrol Dosepak for cough. Has been taking Medrol Dosepak, not Bromfed. Coming in for further evaluation of oral blisters and what now appear to be blisters in his throat. Denies shortness of breath, voice changes, difficulty or pain with range of motion of neck, trismus, chest pain, or any other concerns. To be noted the patient has numerous medication changes recently was complicates care. history was obtained via conversation with patient. On arrival, patient hemodynamically stable, alert, [oriented x4, ][appropriate, ]GCS [15], moving all extremities spontaneously, pupils equal and reactive to light. Full physical exam performed and significant for numerous intraoral lesions. He also has bilateral conjunctivitis. No lymphadenopathy. He does have erythematous rash on face, trunk that spares his palms and soles. Evidence of skin sloughing. Wheezes in right lower lung mock anteriorly. Normotensive, nontachycardic, otherwise. Differential includes SJS/TN, pneumonia, medication side effect, adverse reaction, viral syndrome, among others. Workup independently interpreted and significant for leukocytosis 17,000 with neutrophilia, patient is on steroids though. Nonactionable chemistry. Chest x- ray pending at time of handoff to oncoming physician. Automatic Pilot Mechanic disclaimer Much of this encounter note is an electronic operator prefinish spoken language to printed text. Electronic operator prefinish of the spoken language may permit errors. Although I have reviewed the note, some errors may still exist. Jimy DORAN: I assumed care of the patient at the time of handoff from the prior provider. On reassessment, patient reports that he feels well.? His vital signs remained within normal limits.? His laboratory results are interpreted by me, no evidence of renal or liver involvement, no significant elevation in inflammatory markers.? Patient does have an elevated white count with a neutrophilic shift, no eosinophilia.? the significance of his leukocytosis is uncertain given he has been on steroids recently.? He had fever and viral syndrome with cough last week, starting approximately 10 days ago.? He took a 5-day course of azithromycin starting last Monday for reported bronchitis.? He was started on Medrol Dosepak this Monday, 3 days ago. His last fever was on , 5 days ago.? His conjunctivitis and mucositis started on Monday, the same day he tested positive for parainfluenza virus.? He denies any blurry vision or vision changes, just reports that it is irritating.? He does have scattered cutaneous lesions, they are not vesicular or bullous in nature.? He thinks they could be related to bug bites but he is not sure.? His skin is generally erythematous, but he says he spent all day out in the sun and he thinks it is a sunburn.? He does not have any past medical history, does not take any medications at all, has no significant history of allergic reactions. The differential for his presentation includes Lea-Sanya syndrome, reactive infectious mucocutaneous eruption, DRESS, erythema multiforme, exanthematous drug reaction.? The patient's drug exposure was relatively short duration and azithromycin is definitely not a common cause of SJS.? The patient does not have any sloughing skin/Nikolsky sign.? He does not have significant elevation in inflammatory markers, no evidence of liver or renal involvement, and patient is generally well-appearing.? Patient does definitively have parainfluenza virus which is a known cause of reactive infectious mucocutaneous eruption.? This seems to be the more likely underlying cause of his presentation in my opinion. This condition is rare amongst adults however.? I had extensive and repeated discussion with patient and family regarding his presentation.? Given the concern for possible SJS, I offered the patient transfer to an academic center for further evaluation and management.? I do not think that our hospital would be equipped to care for him if he were to worsen.? I explained to him that SJS is a serious condition with an elevated risk of mortality.? However, at this time patient has normal vital signs, essentially normal labs, is afebrile, and feels well.? He also has a possible alternative diagnosis considering his parainfluenza virus infection.? 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 He reports that he will return to our ER or to another facility if his symptoms worsen or do not improve.? Given this, the patient was ultimately discharged in stable condition.? He was given ofloxacin drops for treatment of conjunctivitis. He was given very strict return precautions for any worsening in symptoms. Critical Care <Luke Rivera MD - Last Filed: 10/03/23 23:15> Critical Care Time Critical Care Time: No
[2023-10-03 23:15] LABS: Anion Gap 13.5 mEq/L (5-15); Potassium 3.5 mmoL/L (3.5-5.1)
[2023-10-03 23:37] LABS: Lymphocytes % 26 % (10-50); Monocytes % 1 % (2-9); Neutrophils % 73 % (42-76); Platelet Estimate Normal; RBC Morphology Normal; Total Cells Counted 100
[2023-10-04 00:43] VITALS: BP 149/97; PULSE 71; RESP 16; TEMP 36.8; O2SAT 99
[2023-10-04] MEDS: OFLOXACIN 0.3% OPHTH DROPS 5ML OP (01:00)
--- NOTE | 2023-10-05 01:50 | PC.NURSE ---
pending final read, initial results for blood cx are negative for growth
== END 2023-10-04 02:31 | disposition home or self-care (01) ==
PROVIDERS: Emergency Medicine; Emergency Provider Emergency Medicine; PCP Family Medicine
DX: K12.1 Other forms of stomatitis (principal); B34.8 Other viral infections of unspecified site; R21 Rash and other nonspecific skin eruption; H10.33 Unspecified acute conjunctivitis, bilateral; F17.210 Nicotine dependence, cigarettes, uncomplicated
CPT/HCPCS: 71046; 80053; 83605; 85007; 85025; 85651; 86140; 87040; 99283

== ENCOUNTER 2023-10-25 15:15 | Outpatient (CLI) | payer OTHER, SELFPAY ==
--- NOTE | 2023-10-25 15:21 | XR_ITS ---
FINAL REPORT CLINICAL HISTORY: COUGH COMPARISON: None FINDINGS: No acute pulmonary density is evident. There is no evidence of effusion or other pleural disease. The mediastinum has a normal appearance. The cardiac silhouette is unremarkable. IMPRESSION: Unremarkable chest exam. Reviewed, Interpreted and Dictated by Nitza Gonzalez MD Transcribed by Amy Rain Authenticated and [facility]
== END 2023-10-25 23:59 | disposition home or self-care (01) ==
LOC: RAD 15:17
PROVIDERS: PCP Family Medicine; Visit Provider Family Medicine
DX: R05.9 Cough, unspecified (principal)
CPT/HCPCS: 71046

== ENCOUNTER 2024-03-16 19:09 | Emergency (ER) | payer OTHER, SELFPAY ==
[2024-03-16 19:19] VITALS: BP 134/87; PULSE 61; RESP 16; TEMP 36.6; O2SAT 98; BMI 25.7
--- NOTE | 2024-03-16 19:25 | HMH.EDGENADL ---
Discharge Plan Disposition Patient Disposition: Home, Self-Care Chief Complaint: Eye Problems Prescriptions Prescriptions: No Action albuterol sulfate 90 mcg/actuation HFA aerosol inhaler See Rx Instructions .ROUTE .COMPLEX Patient Comments: INHALE 2 PUFFS BY MOUTH 4 TIMES DAILY SCHEDULED THEN EVERY 2 HOURS NEEDED Rx Instructions: INHALE 2 PUFFS BY MOUTH 4 TIMES DAILY SCHEDULED THEN EVERY 2 HOURS NEEDED methylprednisolone [Medrol (Remington)] 4 mg tablets,dose pack See Rx Instructions .ROUTE .COMPLEX 6 Days Qty: 21 0RF Rx Instructions: 4 mg orally ;Medrol dose taper remington abmbxmeahfagnkv-gacaenqyh-RQ [Bromfed DM] 2-30-10 mg/5 mL syrup 10 ml PO Q4-6H PRN (Reason: cold symptoms) Qty: 200 0RF Referrals Follow up/Referrals: Davion Bauman MD [Primary Care Provider] - See instructions Activity Restrictions/Add. Instructions Additional Instructions/Restrictions: Erythromycin ointment 3 times daily for 5 days. Call your family doctor to establish care for this visit to the emergency department and schedule follow-up within 48 hours to ensure improvement. If you have any worsening of your condition or any other concerning signs or symptoms, return to the emergency department or your primary care doctor for further evaluation. Clinical Impressions Clinical Impression: Injury of conjunctiva and corneal abrasion without foreign body, right eye, initial encounter Print Language Print Language: Luxembourgish Discharge ED Provider: Luke Rivera General Adult HPI General Chief complaint: Eye Problems Stated complaint: AO 03/16/24 1800 FB in right eye Time Seen by Provider: 03/16/24 19:13 Mode of Arrival: Ambulatory Source of Information: Patient Limitations: No Limitations Description of Symptoms (Recalled from ER Triage Doc. by RN): Pt states he got a piece of wood in his right eye an hour ago History of Present Illness HPI narrative: Please note that above description of symptoms, in this electronic medical record under categorization of recalled from ER triage doctor by RN are reflective of an initial nursing assessment, however, is not reflective of my full history and physical exam that was personally taken and clarified. Consequentially, this preceding description of symptoms, which may include the patient's categorized chief complaint in the EMR, do not reflect my personal clinical impression, and the ultimate description of history of present illness and patient stated complaints should be deferred to this section of the note. Unless stated otherwise or congruent with this section of the note, additional signs, symptoms, or incongruence should be interpreted as inaccurate with my clinical impression. Related Data Home Medications ?Medication ?Instructions ?Recorded ?Confirmed albuterol sulfate 90 mcg/actuation See Rx Instructions .Route .COMPLEX 09/30/23 09/30/23 aerosol inhaler Previous Rx's ?Medication ?Instructions ?Recorded hpceyvmenfhmlwg-dderilejrxswdlv-GF 10 ml PO Q4-6H PRN cold symptoms 09/30/23 2 mg-30 mg-10 mg/5 mL oral syrup #200 mL (Bromfed DM) methylprednisolone 4 mg tablets in See Rx Instructions .Route 09/30/23 a dose pack (Medrol (Remington)) .COMPLEX 6 days #21 tabs Allergies Allergy/AdvReac Type Severity Reaction Status Date / Time Penicillins [PENICILLINS] Allergy Unknown Verified 09/30/23 17:38 [facility] Disclaimer: The information contained in this section may have been updated after the patient was seen, as this information can be updated by other users. Social History Smoking Status: Current every day smoker tobacco type: cigarettes packs per day: 1 alcohol intake: current alcohol intake frequency: holidays/special occasions only substance use type: other current occupational status: employed Travel in the last 8 weeks: None number of children: 2 caffeine: Yes Other Medical History Have you received the Flu Vaccine for this season: No Have you received the Pneumonia Vaccine: No ROS Obtained: Yes All systems reviewed & no additional complaints except as documented Physical Exam General General appearance: alert Head Head exam: atraumatic and normocephalic Eye Eye exam: Present PERRL, EOMI and other (Corneal abrasion at 5 o'clock position overlying iris. No foreign body. No evidence of hyphema, proptosis, entrapment, conjunctival hemorrhage, pupillary changes, cellulitic change, obvious foreign body, or otherwise irregular ocular findings. ) Neck Neck exam: Present normal inspection, full ROM and trachea midline Respiratory Respiratory exam: Absent respiratory distress, wheezes, stridor, accessory muscle use or prolonged expiratory phase Cardiovascular Cardiovascular exam: Present other (Pulses equal symmetric in upper and lower extremities) Abdominal Exam Abdominal exam: Present soft; Absent distention, tenderness or pulsatile mass Extremities Exam Extremities exam: Absent edema Neurological Exam Neurological exam: Present alert, oriented X3 and CN II-XII intact; Absent motor sensory deficit Skin Skin exam: Present warm and dry; Absent diaphoresis or erythema Medical Decision Making Medical Records Medical records reviewed: Yes I reviewed the patient's medical records. Screening: Per USPSTF and CDC recommendations, given the prevalence of disease in our region, it is our hospital?s policy to screen for HIV and viral Hepatitis for all patients aged 18 and over and those with ongoing risk factors. Kirk Inquiry Pt receiving controlled substance: No Kirk was queried for this patient: No Vital Signs: 03/16/24 19:19 Temperature 97.8 F Temperature Source Oral Pulse Rate [Right Brachial] 61 Respiratory Rate 16 Blood Pressure [Right Arm] 134/87 Blood Pressure Mean [Right Arm] 102 Blood Pressure Source [Right Arm] Automatic Cuff 02 Sat by Pulse Oximetry 98 Oxygen Delivery Method Room Air Orders (Tests/Meds): ED MEDICATIONS Discontinued Medications Generic Name Dose Route Start Last Admin Trade Name Freq PRN Reason Stop Dose Admin Erythromycin 0.5 gm 03/16/24 19:12 Erythromycin Base 1 Gm Oint...G. OP 03/16/24 19:13 ONCE ONE Fluorescein Sodium 1 mg 03/16/24 19:12 Fluorescein Sodium 1mg Strip OP 03/16/24 19:13 ONCE ONE Tetracaine HCl 0 ml 03/16/24 19:12 Tetracaine 0.5% Opth Olivia 15ml OP 03/16/24 19:13 ONCE ONE ORDERS Category Date Time Status HIV (1&2) Antibody Rapid Stat Lab 03/16/24 19:22 Ordered Hep C Ab with Reflex to RNA Stat Lab 03/16/24 19:22 Ordered Medical Decision Narrative: 43-year-old male no relevant medical history presenting with concern for foreign body in his right eye. States that he was outside on his tractor, tree branch hit him in the face just prior to arrival. Last tetanus shot was in 2019. Took picture of his eye, realized there was a dark spot in the area that hurt, came in for foreign body evaluation. Minimal pain, no vision changes, no other trauma. Not on blood thinners. History obtained with patient. On arrival, very well-appearing. Conjunctival injection in his right eye, no obvious foreign body with white light. No evidence of hyphema, proptosis, entrapment, conjunctival hemorrhage, pupillary changes, cellulitic change, obvious foreign body, or otherwise irregular ocular findings. Differential includes abrasion, laceration, less likely to be open globe, etc. Fluorescein was applied, Bullock lamp examination demonstrates corneal abrasion at 5 o'clock position overlying iris. Small foreign body in medial canthus. This was removed with cotton-tipped applicator. Patient also has no abnormalities on lid eversion. 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 Erythromycin ointment was given, patient discharged. Because patient at baseline without signs or symptoms of clinical decompensation, deemed appropriate for discharge. Results were relayed to patient who voiced understanding and were agreeable to outpatient management and follow up. I discussed my clinical impression with patient and answered all questions. At this time, the evidence for any other entities in the differential is insufficient to warrant any further testing or ED observation. This was explained as well. Advisory was given that persistent or worsening symptoms require further evaluation. I confirmed the understanding of this discussion. 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 Electronic appliance parts counter clerk of the spoken language may permit errors. Although I have reviewed the note, some errors may still exist. Critical Care Critical Care Time Critical Care Time: No
[2024-03-16] MEDS: ERYTHROMYCIN BASE 1 GM OINT...G. 0.5 GM OP (19:29)
[2024-03-16] MEDS: FLUORESCEIN SODIUM 1MG STRIP 1 MG OP (19:29)
[2024-03-16] MEDS: TETRACAINE 0.5% OPTH SOL 15ML OP (19:30)
[2024-03-16 19:36] VITALS: BP 117/86; PULSE 82; RESP 16; TEMP 36.6; O2SAT 96
== END 2024-03-16 19:37 | disposition home or self-care (01) ==
PROVIDERS: Emergency Provider Emergency Medicine; PCP Family Medicine
DX: S05.01XA Injury of conjunctiva and corneal abrasion without foreign body, right eye, initial encounter (principal); H57.11 Ocular pain, right eye; W44.8XXA Other foreign body entering into or through a natural orifice, initial encounter; Y93.89 Activity, other specified; Y92.9 Unspecified place or not applicable
CPT/HCPCS: 99283

== ENCOUNTER 2024-12-12 16:00 | Emergency (ER) | payer OTHER, SELFPAY ==
[2024-12-12] VITALS (9 sets, daily range): BP systolic 110–142; BP diastolic 74–94; PULSE 74–107; RESP 18–20; TEMP 36.9–37; O2SAT 94–98; BMI 25.7
[2024-12-12 16:09] LABS: Microscopic, Urine URINE MICROSCOPIC (MICROSCOPIC)
[2024-12-12 16:11] LABS: Bilirubin,Urine Negative (Negative); Color,Urine YELLOW (Yellow); Glucose,Urine (UA) Negative (Negative); Ketones,Urine Negative (Negative); Leukocyte Esterase,Urine Negative (Negative); PH,Urine 6.0 (5.0-8.5); Protein,Urine TRACE (Negative); Specific Gravity, Urine 1.015 (1.005-1.030); Urobilinogen,Urine 0.2 EU/dl (0.2)
--- OUTSIDE RECORDS SUMMARY | 2024-12-12 16:16 | XMS_ITS | Encounter Summary ---
Author Organization [facility] Address [address] [place] [address] Care Team Providers Care Electroplater Automatic Name Role Phone Davion Bauman MD Primary Care Provider [phone] Source Comments This information has been disclosed to you from confidential records protectfrom disclosure by state law. You shall make no further disclosure of thisinformation without the specific, written, and informed release of theindividual to whom it pertains, or as otherwise permitted by law. A generalauthorization for the release of medical or other information is not sufficientfor the purposes of the release of HIV test results or diagnoses. [id number] Health Encounter Details Date Type Department Care Team (Late st Contact Info) Description 10/07/2023 Ophth Exam [facility] Op[facility] at [facility] [address] [place] [address] [address] [place] [address] Guy Edmonds MD [address] [place] [id number] Social History Tobacco Use Types Packs/Day Years Used Date Smoking Tobacco: Every Day Cigarettes Smokeless Tobacco: Never Alcohol Use Standard Drinks/Week Comments Yes 24 (1 standard drink = 0.6 oz pu re alcohol) Utilities Answer Date Recorded In the past 12 months has [employer], gas, oil, or water [employer] threatened to shut off services in your home? No 10/07/2023 AUDIT-C Answer Date Recorded Q1: How often do you have a drink containing alcohol? 4 or more times a week 10/07/2023 Q2: How many drinks containi ng alcohol do you have on a typical day when you are drinking? 5 or 6 Q3: How often do you have si x or more drinks on one occasion? Weekly 10/07/2023 Hunger Vital Sign Answer Date Recorded Within the past 12 months, y ou worried that your food would run out before you got the money to buy more. Never true 10/07/19 24 Within the past 12 months, t he food you bought just didn't last and you didn't have money to get more. Never true 10/07/2023 PRAPARE - Transportation Answer Date Re corded In the past 12 months, has l ack of transportation kept you from medical appointments or from getting medications? No 05/2023 In the past 12 months, has l ack of transportation kept you from meetings, work, or from getting things needed for daily living? No 10/07/2023 Housing Stability Vital Sign Answer Leighton e Recorded In the last 12 months, was t here a time when you were not able to pay the mortgage or rent on time? No 10/07/2023 In the past 12 months, how m any times have you moved where you were living? 0 10/07/2023 At any time in the past 12 m [facility], were you homeless or living in a halfway (including now)? No 10/07/2023 Sex and Gender Information Value Date Recorded Sex Assigned at Not on file Legal Sex Male 2:58 PM EDT Gender Identity Not on file Sexual Orientation Not on file documented as of this encounter Functional Status * Audit-C Score Answer Date of Assessment Author 9 10/07/2023 2:29 AM David Kendrick RN * Question Answer Date of Assessment Author Q1: How often do you have a drink containing alcohol? 4 or more times a week 10/07/2023 2:29 AM Radha Kendrick RN Q2: How many drinks containing alcohol do you have on a typical day when you are drinking? 5 or 6 10/07/2023 2:29 AM Radha Kendrick RN Q3: How often do you have six or more drinks on one occasion? Weekly 10/07/2023 2:29 AM Radha Kendrick RN documented as of this encounter Plan of Treatment Not on file documented as of this encounter Visit Diagnoses Not on filedocumented in this encounter Additional Health Concerns Infection Onset Date Last Indicated Resolved Time Respiratory Viral Illness Comment:10/05/23: (+) Parainfluenza 3 10/05/2023 10/05/2023 documented as of this encounter Care Teams Electroplater Automatic Relationship Specialty Start Date End Date Davion Bauman MD [address] [place] [id number] PCP - General Family Medicine 10/04/23 documented as of this encounter
--- OUTSIDE RECORDS SUMMARY | 2024-12-12 16:16 | XMS_ITS | Clinical Summary ---
Author Organization [facility] Address [address] [place] [id number] Care Team Providers Care Preventive Medicine Specialist Name Role Phone Davion Bauman MD Primary Care Provider [phone] Source Comments This information has been disclosed to you from confidential records protectedfrom disclosure by state law. You shall make no further disclosure of thisinformation without the specific, written, and informed release of theindividual to whom it pertains, or as otherwise permitted by law. A generalauthorization for the release of medical or other information is not sufficientfor the purposes of therelease of HIV test results or diagnoses. [id number] Allergies Active Allergy Reactions Criticality Noted Date Comments Penicillins 10/24/2019 Medications acetaminophen (TYLENOL) 325 MG tablet Take 3 tablets (975 mg total) by mouth every 8 hours. 100 tablet 10/10/2023 3:16 PM EDT 4 Active betamethasone dipropionate, AUGMENTED (DIPROLENE) 0.05 % ointment Apply topically 2 times a day. 30 g 10/10/2023 3:16 PM EDT 4 Active chlorhexidine (PERIDEX) 0.12 % solution Use as directed 15 mLs in the mouth or throat 3 times a day. 473 mL 10/10/2023 3:16 PM EDT 4 Active lidocaine HCL (XYLOCAINE) 2 % Soln 15 mLs by Mucous Membrane route every 4 hours. 1000 mL 10/10/2023 3:16 PM EDT 4 Active miconazole (MICOTIN) 2 % powder Apply topically if needed. To groin 85 g 4 Active naloxone (NARCAN) 4 mg/actuation [facility] Apply 1 spray in one nostril if needed. Call 911. May repeat dose in other nostril if no response in 3 minutes. 2 each 1 10/10/2023 3:16 PM EDT 4 Active Magic Mouth Wash Take 15 mLs by mouth 3 times a day. 120 mL 10/10/2023 3:16 PM EDT 4 Active Active Problems Problem Noted Date Diagnosed Date Rash 10/05/2023 Social History Tobacco Use Types Packs/Day Years Used Date Smoking Tobacco: Every Day Cigarettes Smokeless Tobacco: Never Tobacco Cessation:Ready to Q uit: No; Counseling Given: Not Answered Alcohol Use Standard Drinks/Week Comments Yes 24 (1 standard drink = 0.6 oz pu re alcohol) Utilities Answer Date Recorded In the past 12 months has th e [employer], [employer], oil, or water [employer] threatened to shut off services in your [...] any time in the past 12 m [facility], were you homeless or living in a correction (including now)? No 10/07/2023 Sex and Gender Information Value Date Recorded Sex Assigned at Not on file Legal Sex Male 2:58 PM EDT Gender Identity Not on file Sexual Orientation Not on file Last Filed Vital Signs Vital Sign Reading Time Taken Comments Blood Pressure 137/83 10/16/2023 9:31 AM EDT Pulse 91 10/16/2023 9:31 AM EDT Temperature 36.6 C (97.9 F) 10/10/2023 4:05 PM EDT Respiratory Rate 12 10/16/2023 9:31 AM EDT Oxygen Saturation 96% 10/10/2023 4:05 PM EDT Inhaled Oxygen Concentration 96% 10/10/2023 4 :05 PM EDT Weight 82.1 kg (181 lb 1.6 oz) 10/16/2023 9:31 A M EDT Height 185.4 cm (6' 1 ) 10/07/2023 2:39 AM EDT Body Mass Index 23.89 10/07/2023 2:39 AM EDT Plan of Treatment Health Maintenance Due Date Last Done Comments Abnormal Colonoscopy Follow Up 1979 Depression Screening 09/08/1997 HIV Screening 09/08/1997 Immunization: Hepatitis B (1 of 3 - 19+ 3-dose series) 09/08/1998 Immunization: Pneumococcal (1 of 2 - PCV) 09/08/1998 Immunization: DTaP/Tdap/Td (1 - Tdap) 07/23/2019 Immunization: COVID-19 ( season) 2024 Cologuard (FIT-DNA) 09/08/2024 Colonoscopy 09/08/2024 Colorectal Cancer Screening (MyChart) 09/08/2024 Stool Testing (gFOBT) 09/08/2024 Alcohol Misuse Screening 10/03/2024 10/04/2023 Immunization: Influenza (MyChart) (#1) 2025 Hepatitis C Screening (MyChart) Completed , 10/04/2023 Procedures Procedure Name Priority Date/Time Associated Diagnosis Comments HEPATITIS C ANTIBODY Routine 10/06/2023 3:01 PM EDT from Last 3 Months or Most Recently Relevant to Health Maintenance Results * Hepatitis C Antibody (10/06/2023 3:01 PM EDT) HCV Ab Nonreactive Nonreactive 10/06/2023 4:07 PM EDT [facility] Comment:Health Department no tified in accordance with reportable infectious disease guidelines. Serum 10/06/2023 3:01 PM EDT 10/06/2023 3:01 PM EDT Narrative [facility] - 10/06/2023 4:07 PM EDT Antibodies to HCV not detected; does not exclude the possibility of exposure to HCV. us Ayush Hunter MD LAB BLOOD ORDERABLES Final R esult [facility] [address] from Last 3 Months or Most Recently Relevant to Health Maintenance Additional Health Concerns Infection Onset Date Last Indicated Respiratory Viral Illness Comment:10/05/23: (+) Parainfluenza 3 10/05/2023 10/05/2023 Insurance E MACK [address] [facility] [address] [place] [address] [place] Advance Directives For more information, please contact: [phone] * Full Code (Latest Code Status on File) Date Activated Date Inactivated Comments 10/05/2023 2:12 AM 10/10/2023 10:08 PM Care Teams Preventive Medicine Specialist Relationship Specialty Start Date End Date Davion Bauman MD [address] [place] [id number] PCP - General Family Medicine 10/04/23
--- NOTE | 2024-12-12 16:24 | CT_ITS ---
PROCEDURE INFORMATION: Exam: CT Abdomen And Pelvis With Contrast Exam date and time: 12/12/2024 4:38 PM Age: 44 years old Clinical indication: Abdominal pain; Additional info: Suprapubic abdominal pain, HX diverticulitis TECHNIQUE: Imaging protocol: Computed tomography of the abdomen and pelvis with contrast. Radiation optimization: All CT scans at this facility use at least one of these dose optimization techniques: automated exposure control; mA and/or kV adjustment per patient size (includes targeted exams where dose is matched to clinical indication); or iterative reconstruction. Contrast material: ISOVUE; Contrast volume: 75 ml; Contrast route: IV; COMPARISON: CR XR CHEST 2V 10/25/2023 3:40 PM FINDINGS: Lungs: No consolidation, lung nodules, or pleural effusions. Liver: No mass. No evidence of fat deposition. No surrounding fluid. Gallbladder and biliary ducts: No calcified stones or wall thickening. No ductal dilation. Pancreas: No masses. No ductal dilation. Spleen: No splenomegaly. No masses or surrounding fluid. Adrenal glands: No mass. Kidneys and ureters: No hydronephrosis, calcified stones, or masses. Stomach and bowel: Wall thickening and stranding of fat in the sigmoid colon near an enhancing diverticulum. No abscesses or evidence of perforation. No other bowel wall thickening, intestinal masses, or abnormal luminal dilatation. Appendix: No evidence of appendicitis. Intraperitoneal space: No free air. No masses or significant fluid collection. Vasculature: No abdominal aortic aneurysm. No other significant abnormalities. Lymph nodes: No enlarged lymph nodes. Urinary bladder: No masses or asymmetric wall thickening. Reproductive: No abnormalities as visualized. Bones/joints: No acute fracture or bone lesions. Soft tissues: No masses or other abnormalities. IMPRESSION: 1. Diverticulitis in the sigmoid colon. No abscess or evidence of perforation. 2. No other acute findings in the abdomen and pelvis.
[2024-12-12] MEDS: ONDANSETRON 4MG/2ML VIAL 4 MG IV (16:30)
[2024-12-12] MEDS: KETOROLAC 30MG/ML VIAL 30 MG IV (16:31)
[2024-12-12 16:37] LABS: Mucus,Urine 1+ /lpf; RBC,Urine Occasional #/hpf (0-3); WBC,Urine Occasional #/hpf (0-3)
[2024-12-12 16:41] LABS: Alanine Aminotransferase 22 U/L (12-78); Albumin Level 4.4 g/dl (3.5-5.0); Albumin/Globulin Ratio 1.6 (1.1-1.8); Alkaline Phosphatase 108 U/L (38-126); Anion Gap 10.6 mEq/L (5-15); Aspartate Amino Transferase 30 U/L (17-59); Bilirubin,Total 1.2 mg/dl (0.2-1.3); Blood Urea Nitrogen 5 mg/dl (9-20); Calcium 9.9 mg/dl (8.4-10.2); Carbon Dioxide 26 mmol/L (22.0-30.0); Chloride 103 mmol/L (98-107); Creatinine Clearance Estimated 162 mL/min (50-200); Creatinine,Serum 0.70 mg/dl (0.66-1.25); Estimated Glomerular Filt Rate 122 ml/min (>60); GFR (African American) 148 ML/MIN (>60); Globulin 2.8 g/dL (1.3-3.2); Glucose 189 mg/dl (74-100); Potassium 3.6 mmoL/L (3.5-5.1); Sodium 136 mmol/L (136-145); Total Protein,Serum 7.2 g/dl (6.3-8.2)
[2024-12-12] MEDS: GADOTERIDOL INJ 20ML SYRINGE 75 ML IV (16:42)
[2024-12-12] MEDS: SODIUM CHLORIDE 0.9% 10ML SYR (RAD ONLY) 10 ML IV (16:43)
[2024-12-12 16:46] LABS: C-Reactive Protein 60.6 mg/L (0-4)
[2024-12-12 16:48] LABS: Hematocrit 48.8 % (42.0-52.0); Hemoglobin 17.2 g/dL (14.1-18.0); Immature Granulocytes % 0.3 %; Mean Corpuscular HGB Conc 35.2 g/dL (31.8-35.4); Mean Corpuscular Hemoglobin 32.1 pg (27.0-31.2); Mean Corpuscular Volume 91.0 fl (80-94); Nucleated Red Blood Cells % 0 %; Platelet Count 293 K/mm3 (142-424); Red Blood Count 5.36 M/mm3 (4.60-6.20); Red Cell Distribution Width-SD 44.2 fL; White Blood Count 13.6 K/mm3 (4.8-10.8)
--- NOTE | 2024-12-12 17:49 | ED_ITS ---
Discharge Plan Disposition Patient Disposition: Home, Self-Care Condition: Good Prescriptions Prescriptions: New metronidazole 500 mg tablet 500 mg PO BID 5 Days Qty: 10 0RF ciprofloxacin HCl 500 mg tablet 500 mg PO BID PRN (Reason: abdominal discomfort) 5 Days Qty: 10 0RF ketorolac 10 mg tablet 10 mg PO Q8H PRN (Reason: pain) 3 Days Qty: 12 0RF ondansetron 4 mg tablet,disintegrating 4 mg PO Q8H Qty: 10 0RF No Action albuterol sulfate 90 mcg/actuation HFA aerosol inhaler See Rx Instructions .ROUTE .COMPLEX Patient Comments: INHALE 2 PUFFS BY MOUTH 4 TIMES DAILY SCHEDULED THEN EVERY 2 HOURS NEEDED Rx Instructions: INHALE 2 PUFFS BY MOUTH 4 TIMES DAILY SCHEDULED THEN EVERY 2 HOURS NEEDED methylprednisolone [Medrol ([place])] 4 mg tablets,dose pack See Rx Instructions .ROUTE .COMPLEX 6 Days Qty: 21 0RF Rx Instructions: 4 mg orally ;Medrol dose taper [place]ington [id number]-djuajcpcb-HW [Bromfed DM] 2-30-10 mg/5 mL syrup 10 ml PO Q4-6H PRN (Reason: cold symptoms) Qty: 200 0RF Referrals Follow up/Referrals: William Dent II, MD [Staff Physician, Gastroenterology] - See instructions Xi Holly APRN [Primary Care Provider, Medical] - See instructions Activity Restrictions/Add. Instructions Additional Instructions/Restrictions: I have sent you with a referral to Dr. Dent who is the GI doctor here in [place]. You will need to call him to schedule an appointment. You will need to take the antibiotics as prescribed for 5 days. You can take Toradol in addition to Tylenol and Zofran for your symptoms. Do not take Toradol in addition to ibuprofen or other NSAIDs. If you have worsening abdominal pain develop fever or you are concerned in any other way then return to the emergency department. Clinical Impressions Clinical Impression: Diverticulitis Instructions Patient Instructions: DI for Acute Abdominal Pain Print Language Print Language: Cuban Discharge ED Provider: Francine Lozada Adult HPI General Chief complaint: Abdominal Pain Stated complaint: Abdominal Pain Time Seen by Provider: 12/12/24 16:04 Mode of Arrival: Ambulatory Source of Information: Patient Description of Symptoms (Recalled from ER Triage Doc. by RN): patient presents to the Ed for complaints of 810 lower abdomen pain. patients stated history of diverticulosis since 2008. the pain started 2 days ago out of no where. the pain ranges from aching to sharp. History of Present Illness HPI narrative: Patient is a 44-year-old male with a past medical history of diverticulitis who presents to the emergency department with suprapubic and left lower quadrant abdominal pain that has been present for 3 days. Patient states that his pain has worsened over the last 3 days, constant in nature but intermittently will get worse. Patient states that his pain is a sharp-like pain. Patient denies any nausea vomiting fevers. Patient denies any urinary symptoms. Patient denies any chest pain or shortness of breath. 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 Patient has never had to be admitted for diverticulitis in the past. Patient denies any prior abdominal surgeries. Related Data Home Medications ?Medication ?Instructions ?Recorded ?Confirmed albuterol sulfate 90 mcg/actuation See Rx Instructions .Route .COMPLEX 09/30/23 09/30/23 aerosol inhaler Previous Rx's ?Medication ?Instructions ?Recorded qbpmsatkctujonz-dophsmhjlhrqzyn-EU 10 ml PO Q4-6H PRN cold symptoms 09/30/23 2 mg-30 mg-10 mg/5 mL oral syrup #200 mL (Bromfed DM) methylprednisolone 4 mg tablets in See Rx Instructions .Route 09/30/23 a dose pack (Medrol ([place])) .COMPLEX 6 days #21 tabs ciprofloxacin HCl 500 mg tablet 500 mg PO BID PRN abdo ceasar 12/12/24 discomfort 5 days #10 tabs ketorolac 10 mg tablet 10 mg PO Q8H PRN pain 3 days #12 12/12/24 tabs metronidazole 500 mg tablet 500 mg PO BID 5 days #10 t abs 12/12/24 ondansetron 4 mg disintegrating 4 mg PO Q8H #10 tabs 0 12/12/24 tablet Allergies Allergy/AdvReac Type Severity Reaction Status Date / Time Penicillins (PENICILLINS) Allergy Unknown Verified 09/30/23 17:38 [facility] Disclaimer: The information contained in this section may have been updated after the patient was seen, as this information can be updated by other users. Social History Smoking Status: Current every day smoker tobacco type: cigarettes packs per day: 1 alcohol intake: current alcohol intake frequency: holidays/special occasions only substance use type: other current occupational status: employed Travel in the last 8 weeks?: None number of children: 2 caffeine: Yes Have you lived/traveled outside [place] in past 30 days?: No Contact w/someone who lives/traveled outside [place] past 30 days?: No Exposure to someone with infectious disease in past 14 days?: No Do you have a fever (greater than 100.4 F or 38 C)?: No Have you tested positive for COVID-19?: No Exposed to someone with COVID-19 in past 14 days?: No Do you have a sore throat?: No Do you have a cough?: No Do you have any weakness?: No Do you have any diarrhea?: No Are you experiencing any unusual bleeding?: No Do you have any muscle aches/pain?: No Do you have any abdominal pain?: Yes Are you experiencing loss of taste or smell?: No Other Medical History Have you received the Flu Vaccine for this season: No Have you received the Pneumonia Vaccine: No ROS Obtained: Yes All systems reviewed & no additional complaints except as documented and Yes Systems reviewed as appropriate & no additional complaints except as documented Physical Exam General General appearance: alert and in no apparent distress Head Head exam: atraumatic, normocephalic and normal inspection Eye Eye exam: Present normal appearance, PERRL and EOMI; Absent scleral icterus ENT ENT exam: Present normal exam and normal external ear exam Neck Neck exam: Present normal inspection and full ROM Chest Chest inspection: Present normal inspection and symmetric chest wall rise Respiratory Respiratory exam: Present normal lung sounds bilaterally; Absent respiratory distress or wheezes Cardiovascular Cardiovascular exam: Present regular rate, normal rhythm and normal heart sounds Abdominal Exam Abdominal exam: Present soft, distention and tenderness (suprapubic and LLQ tenderness); Absent guarding or rebound Extremities Exam Extremities exam: Present normal inspection and full ROM Back Exam Back exam: Present normal inspection and full ROM Neurological Exam Neurological exam: Present alert and oriented X3 Psychiatric Psychiatric exam: Present normal affect and normal mood Skin Skin exam: Present warm and dry Medical Decision Making Medical Records Screening: Per USPSTF and CDC recommendations, given the prevalence of disease in our region, it is our hospital?s policy to screen for HIV and viral Hepatitis for all patients aged 18 and over and those with ongoing risk factors. Kirk Inquiry Pt receiving controlled substance: No Vital Signs: 12/12/24 16:07 12/12/24 16:10 12/12/24 16:15 Temperature 98.5 F Temperature Source Oral Pulse Rate 107 H 77 Pulse Rate [Right Radial] 101 H Respiratory Rate 20 Blood Pressure 142/94 H 110/85 Blood Pressure [Right Arm] 142/94 H Blood Pressure Mean [Right Arm] 110 Blood Pressure Source [Right Arm] Automatic Cuff Blood Pressure Position [Right Arm] Sitting 02 Sat by Pulse Oximetry 98 97 96 Oxygen Delivery Method Room Air 12/12/24 16:30 12/12/24 16:45 12/12/24 17:00 Temperature Temperature Source Pulse Rate 96 H 75 77 Pulse Rate [Right Radial] Respiratory Rate Blood Pressure 122/84 122/85 124/82 Blood Pressure [Right Arm] Blood Pressure Mean [Right Arm] Blood Pressure Source [Right Arm] Blood Pressure Position [Right Arm] 02 Sat by Pulse Oximetry 96 97 95 Oxygen Delivery Method 12/12/24 17:15 12/12/24 17:30 Temperature Temperature Source Pulse Rate 87 80 Pulse Rate [Right Radial] Respiratory Rate Blood Pressure 121/79 115/74 Blood Pressure [Right Arm] Blood Pressure Mean [Right Arm] Blood Pressure Source [Right Arm] Blood Pressure Position [Right Arm] 02 Sat by Pulse Oximetry 94 L 97 Oxygen Delivery Method Lab Data Lab results reviewed: Yes I reviewed the patient's lab results. Lab Results 12/12/24 16:03: Urine Color Yellow, Urine Appearance Clear, Urine pH 6.0, Ur Specific [place] 1.015, Urine Protein Trace, Urine Glucose (UA) Negative, Urine Ketones Negative, Urine Blood Trace-i, Urine Nitrate Negative, Urine Bilirubin Negative, Urine Urobilinogen 0.2, Ur Leukocyte Esterase Negative, Urine RBC Occasional, Urine WBC Occasional, Ur Squamous Epith Cells None, Urine Bacteria None, Urine Mucus 1+ 12/12/24 16:13: WBC 13.6 H, RBC 5.36, Hgb 17.2, Hct 48.8, MCV 91.0, MCH 32.1 H, MCHC 35.2, RDW 13.2, Plt Count 293, MPV 8.9, Neut % (Auto) 73.5, Lymph % (Auto) 17.9, [place] % (Auto) 6.0, Eos % (Auto) 1.6, Baso % (Auto) 0.7, Neut # (Auto) 10.0 H, Lymph # (Auto) 2.4, [place] # (Auto) 0.8, Eos # (Auto) 0.2, Baso # (Auto) 0.1, Sodium 136, Potassium 3.6, Chloride 103, Carbon Dioxide 26, Anion Gap 10.6, BUN 5 L, Creatinine 0.70, Estimated Creat Clear 162, Estimated GFR 122, Est GFR ( Amer) 148, Glucose 189 H, Calcium 9.9, Total Bilirubin 1.2, AST 30, ALT 22, Alkaline Phosphatase 108, C-Reactive Protein 60.6 H, Total Protein 7.2, Albumin 4.4, Globulin 2.8, Albumin/Globulin Ratio 1.6 12/12/24 16:13 12/12/24 16:13 Orders (Tests/Meds): ED MEDICATIONS Generic Name Dose Route Start Last Admin Trade Name Freq PRN Reason Stop Dose Admin Sodium Chloride 10 ml 12/12/24 16:41 12/12/24 16:43 Sodium Chloride 0.9% 10ml Syr (Rad Only) IV 01/11/25 16:40 10 ml NEEDED PRN Administration Maintain IV Site Discontinued Medications Generic Name Dose Route Start Last Admin Trade Name Freq PRN Reason Stop Dose Admin Gadoteridol 75 ml 12/12/24 16:41 12/12/24 16:42 Gadoteridol Inj 20ml Syringe IV 12/12/24 16:42 75 ml ONCE ONE Administration Ketorolac Tromethamine 30 mg 12/12/24 16:24 12/12/24 16:31 Ketorolac 30mg/Ml Vial IV 12/12/24 16:25 30 mg ONCE ONE Administration Ondansetron HCl 4 mg 12/12/24 16:24 12/12/24 16:30 Ondansetron 4mg/2ml Vial IV 12/12/24 16:25 4 mg ONCE ONE Administration ORDERS Category Date Time Status CT abdomen pelvis w con Stat Cat Scan 12/12/24 16:24 Completed CBC w/Auto Diff [Complete Blood Count Auto Diff] Stat Lab 12/12/24 16:13 Completed CMP [Comprehensive Metabolic Panel] Stat Lab 12/12/24 16:13 Completed CRP [C-Reactive Protein] Stat Lab 12/12/24 16:13 Completed Lactate Venous Stat Lab 12/12/24 16:34 Ordered UA [Urinalysis and Microscopic] Stat Lab 12/12/24 16:03 Completed UA [Urinalysis and Microscopic] Stat Lab 12/12/24 16:24 Ordered Urine Culture Stat Micro 12/12/24 16:24 Ordered Medical Decision Narrative: Patient is a 44-year-old male with no significant past medical history except for diverticulitis who presented to the emergency department with abdominal pain. On arrival, patient was hemodynamically stable with unremarkable vital signs. On exam, patient had suprapubic and left lower quadrant abdominal tenderness otherwise exam was unremarkable. Differential includes but not limited to: Diverticulitis, intra-abdominal abscess, urinary tract infection, bowel perforation, appendicitis, bowel obstruction, amongst others. Given history and exam, labs were obtained as well as CT scan. Labs were reviewed and interpreted by myself, patient had a mild leukocytosis of 13, otherwise CBC showed stable hemoglobin. CMP was unremarkable. UA showed no evidence of infection. CRP elevated at 60. CT scan was reviewed and interpreted by myself and showed acute uncomplicated diverticulitis no evidence of bowel perforation or abscess. At this time given patient's clinical presentation of acute uncomplicated diverticulitis I felt that patient was appropriate for discharge given that patient had pain control with Toradol and Zofran in the emergency department. Patient was sent with a prescription for Toradol and Zofran and given a prescription for antibiotics. Patient was given a referral to GI to schedule colonoscopy. Patient was given return precautions and patient was otherwise discharged home in stable condition. Critical Care Critical Care Time Critical Care Time: No
== END 2024-12-12 18:17 | disposition home or self-care (01) ==
PROVIDERS: Emergency Provider Student in an Organized Health Care Education/Training Program; PCP Nurse Practitioner Family
DX: K57.32 Diverticulitis of large intestine without perforation or abscess without bleeding (principal); R10.30 Lower abdominal pain, unspecified; F17.210 Nicotine dependence, cigarettes, uncomplicated
CPT/HCPCS: 74177; 80053; 81001; 85025; 86140; 96374; 96375; 99285; A9576; J1885; J2405